=== PATIENT | female | born 1980 | race Caucasian/White ===

== ENCOUNTER 2017-09-21 15:15 | Inpatient (IN) | payer OTHER ==
[~2017-09-21] VITALS: Ht 162.6 cm; Wt 102.1 kg
[2017-10-17] MEDS ORDERED: PRENATAL TABLE1 EAC1 PO (11:03)
== END 2017-10-19 17:37 | disposition home or self-care (01) | DRG 775 ==
LOC: LDR 10-17 07:03 → OB/GYN 10-17 07:03 → SURH 10-18 15:15 → OB/GYN 10-19 17:37
PROC: 10E0XZZ Delivery of Products of Conception, External Approach (ICD-10-PCS; principal; 2017-10-17)
PROC: 0W8NXZZ Division of Female Perineum, External Approach (ICD-10-PCS; 2017-10-17)
PROC: 10907ZC Drainage of Amniotic Fluid, Therapeutic from Products of Conception, Via Natural or Artificial Opening (ICD-10-PCS; 2017-10-17)
PROC: 4A1HXCZ Monitoring of Products of Conception, Cardiac Rate, External Approach (ICD-10-PCS; 2017-10-17)
DX: O99.824 Streptococcus B carrier state complicating childbirth (principal); O69.81X0 Labor and delivery complicated by cord around neck, without compression, not applicable or unspecified; Z3A.39 39 weeks gestation of pregnancy; Z37.0 Single live birth

== ENCOUNTER 2017-10-04 13:54 | Outpatient (CLI) | payer OTHER | END 2017-10-04 15:11 | disposition home or self-care (01) | LOC: NST 13:54 | DX: Z34.83 Encounter for supervision of other normal pregnancy, third trimester (principal) ==

== ENCOUNTER 2017-10-12 13:25 | Outpatient (CLI) | payer OTHER | END 2017-10-12 13:47 | disposition home or self-care (01) | LOC: NST 13:25 | DX: Z34.83 Encounter for supervision of other normal pregnancy, third trimester (principal) ==

== ENCOUNTER 2020-10-19 14:30 | Inpatient (IN) | payer OTHER ==
[~2020-10-19] VITALS: Ht 162.6 cm; Wt 97.1 kg
[~2020-10-19 14:30] MED LIST: PRENATAL TABLE1 EAC1 PO
== END 2020-10-29 15:54 | disposition home or self-care (01) | DRG 807 ==
LOC: OB/GYN 10-27 06:29 → LDR 10-27 06:29 → OB/GYN 10-27 13:09 → SURH 11-02 14:30
PROVIDERS: ADMIT Obstetrics & Gynecology; ATTEND Obstetrics & Gynecology
PROC: 10E0XZZ Delivery of Products of Conception, External Approach (ICD-10-PCS; principal; 2020-10-27)
PROC: 0HQ9XZZ Repair Perineum Skin, External Approach (ICD-10-PCS; 2020-10-27)
PROC: 4A1HXFZ Monitoring of Products of Conception, Cardiac Rhythm, External Approach (ICD-10-PCS; 2020-10-27)
DX: O70.0 First degree perineal laceration during delivery (principal); Z37.0 Single live birth; Z3A.39 39 weeks gestation of pregnancy; Z20.822 Contact with and (suspected) exposure to COVID-19